=== PATIENT | female | born 1945 | race Caucasian/White ===

== ENCOUNTER 2018-03-04 06:10 | Day surgery (SDC) | payer MEDICARE, OTHER ==
[~2018-03-04] VITALS: Ht 165.1 cm; Wt 97.1 kg
[~2018-03-04 06:10] MED LIST: ADULT LOW DOSE81 MG PO; ALPHA LIPOIC A300 MG PO; CALCIUM + VITA1 EACH PO; CETIRIZINE HCL10 MG PO; CHOLEST OFF450 MG PO; CINNAMON500 MG PO; ENALAPRIL MALEA10 MG PO; LANTUS SOL100 UNIT/1 SUB-Q; LYSINE1000 MG PO; METFORMIN HCL500 M2 PO; MUPIROCIN22 GM TOP; NAPROXEN500 MG PO; OCUVITE TABLET1 EAC1 PO; TRULICITY1.5 MG/0.5 SUB-Q; VITAMIN C500 M1 PO; VITAMIN D2000 UNI1 PO
--- NOTE | 2018-03-04 08:03 | NUR ---
03/04/18 0803 Kimberlee Olsen 0759 PATIENT ARRIVES TO PACU AWAKE, ASKING QUESTIONS APPROPRIATELY. RESP EVEN AND UNLABORED, NC AT 2 LITERS TURNED OFF ON ARRIVAL. PATIENT DENIES PAIN OR NAUSEA. 0802 PATIENT RESTING QUIETLY WITH EYES CLOSED. SATS 94 ON ROOM AIR.
--- NOTE | 2018-03-04 09:42 | NUR ---
PT ALERT, ORIENTED AND SUPPORTED BY HER MONTY. PT SEEMED TO DEAL WITH PREP WELL, NO MAJOR ISSUES. BOTH SEEM PREPARED, ASKED FEW QUESTIONS. PT REQUESTED PRAYER, WILL FOLLOW NEEDED
--- NOTE | 2018-03-05 11:54 | OR ---
[facility] [address], [place] [address] Signed DATE OF OPERATION: 03/04/2018 SURGEON: Wen Kahn MD PREOPERATIVE DIAGNOSIS: Episodic diarrhea. POSTOPERATIVE DIAGNOSIS: Mild colonic edema at sigmoid. PROCEDURE: Total colonoscopy to cecum with biopsies. ANESTHESIA: Intravenous sedation, fentanyl 100 mcg, Versed 3 mg. INDICATION: A 72-year-old white woman is a patient of Dr. Nitin Dupont, at [facility]. She is known to me from the past having undergone colonoscopy in 2005, which was normal. She has had complaints of episodic diarrhea, but no blood per rectum. Notably, she has diabetes and is on metformin. She is admitted at this time to undergo colonoscopy to better characterize the source for diarrhea. She understands the risks of bleeding, infection, and perforation. FINDINGS: The prep was excellent. Complete colonoscopy was undertaken to the cecum without problem. She had no sign of polyps, cancer, or diverticulosis. There was mild edema of the sigmoid and left colon, but no sign of florid colitis. Biopsies were obtained. DESCRIPTION OF PROCEDURE: The patient was brought to the endoscopy suite and placed in lateral decubitus position, given intravenous sedation to the point of slurred speech and nystagmus. Digital rectal examination was normal. An Olympus video colonoscope was passed in the rectum and manipulated throughout the colon ultimately intubating the cecum itself. The ileocecal valve and appendiceal orifice were normal. Though the cecum appeared normal, biopsies were obtained. The scope was withdrawn from that point. Careful examination upon withdrawal of the scope showed no sign of abnormality. Biopsies were taken of the proximal descending colon as well as the sigmoid colon where there was mild edema of the mucosa, but no sign of florid inflammatory change. There were no diverticular changes that could be seen and no signs of polyp. Retroflexed view of the rectum was normal. A Electronically Signed By: WEN KAHN MD 03/05/18 1154 PATIENT NAME: ROSELYN CERVANTES OPERATIVE REPORT DATE OF : 47 REPORT #: [id number] PHYSICIAN: WEN KAHN MD PCP: NITIN DUPONT DO REPORT IS CONFIDENTIAL AND NOT TO BE RELEASED WITHOUT AUTHORIZATION [facility] [address] [place] [id number] Signed biopsy was obtained of the rectum as well. The scope was removed and the patient was taken to recovery room in good condition. CONCLUDING DIAGNOSIS: Mild edema of the sigmoid. No obvious sign of colitis. No neoplasm. PLAN: I would recommend fiber supplement, Citrucel 1 tablespoon daily. If this is ineffective, she will let me know and we will work on it more. She will follow up with Dr. Nitin Dupont as needed as well. MD CATY Tompkins/JAVIER /[id number] cc: Nitin Dupont DO Copies: NITIN DUPONT DO ~ Electronically Signed By: WEN KAHN MD 03/05/18 1154 PATIENT NAME: ROSELYN CERVANTES OPERATIVE REPORT DATE OF : 47 REPORT #: [id number] PHYSICIAN: WEN KAHN MD PCP: NITIN DUPONT DO REPORT IS CONFIDENTIAL AND NOT TO BE RELEASED WITHOUT AUTHORIZATION
== END 2018-03-04 08:30 | disposition home or self-care (01) ==
LOC: OPS 06:10 → DS 06:10 → OPS 06:45 → DS 06:45 → OPS 08:30
PROVIDERS: Surgery
PROC: 0DBN8ZX Excision of Sigmoid Colon, Via Natural or Artificial Opening Endoscopic, Diagnostic (ICD-10-PCS; 2018-03-04)
PROC: 0DBP8ZX Excision of Rectum, Via Natural or Artificial Opening Endoscopic, Diagnostic (ICD-10-PCS; 2018-03-04)
PROC: 0DBG8ZX Excision of Left Large Intestine, Via Natural or Artificial Opening Endoscopic, Diagnostic (ICD-10-PCS; 2018-03-04)
PROC: 0DBH8ZX Excision of Cecum, Via Natural or Artificial Opening Endoscopic, Diagnostic (ICD-10-PCS; principal; 2018-03-04 06:45)
DX: K52.9 Noninfective gastroenteritis and colitis, unspecified (principal); K63.89 Other specified diseases of intestine; E11.9 Type 2 diabetes mellitus without complications; I10 Essential (primary) hypertension; K62.89 Other specified diseases of anus and rectum; Z88.5 Allergy status to narcotic agent; Z88.8 Allergy status to other drugs, medicaments and biological substances; Z98.890 Other specified postprocedural states
CPT/HCPCS: 99153; G0500; J2250; J3010; J7120